=== PATIENT | female | born 1990 | race African-American/Black ===

== ENCOUNTER 2019-06-10 22:43 | Emergency (ER) | payer MEDICAID ==
--- NOTE | 2019-06-10 23:05 | ED Physician Chart ---
ED Chief Complaint/HPI - Patient Information Date Seen:: 06/10/19 Time Seen:: 22:50 Chief Complaint:: headache History of Present Illness:: Patient had onset 2-3 days ago of bifrontal headache which then became bitemporal. She saw flashing lights at the onset of the headache. Current headache severity is 4 on a scale of 1-10. Now she feels her neck is getting stiff. No recent fever. This is the patient's worse headache ever. Patient had milder headaches when she was 5 years ago. Allergies:: Allergies Allergy/AdvReac Type Severity Reaction Status Date / Time No Known Allergies Allergy Verified 06/10/19 22:52 Vitals:: Vital Signs - 8 hr 06/10/19 22:45 Temp 98.0 F HR 78 RR 18 BP 135/84 O2 Sat % 96 Historian:: Patient Review:: Nurse's Note Reviewed ED Review of Systems - Review of Systems General/Constitutional: No fever, No chills Skin: No skin lesions Head: Headache Eyes: No loss of vision ENT: No earache Neck: No neck pain, No swelling Cardio Vascular: No chest pain, No palpitations Pulmonary: No SOB GI: No nausea, No vomiting, No diarrhea G/U: No dysuria Musculoskeletal: No bone or joint pain Endocrine: No polyuria, No polydipsia Psychiatric: No prior psych history, No depression, No anxiety Hematopoietic: No bruising Allergic/Immuno: No urticaria Neurological: No syncope, No focal symptoms ED Past Medical History - Past Medical History Past Medical History: No significant medical hx Family History: Diabetes Melitus, HTN Social History: Non Smoker, No Alcohol Surgical History: None Psychiatricy History: None Family Medical History - Family Member Mother Hx Family Hypertension: Yes Hx Family Diabetes: Yes ED Physical Exam - Physical Examination General/Constitutional: Awake, Well-developed, well-nourished, Alert, No distress, GCS 15, Non-toxic appearing, Ambulatory Head: Atraumatic Eyes: Lids, conjuctiva normal, PERRL Other Eyes comments:: Optic disc are sharp Skin: Nl inspection, No rash, No skin lesions, No ecchymosis, Well hydrated, No lymphadenopathy ENMT: External ears, nose nl, TM canals nl, Nasal exam nl, Lips, teeth, gums nl , Oropharynx nl, Tonsils nl Neck: No nuchal rigidity Other Neck comments:: 90 forward flexion neck Respiratory: Nl effort/Exclusion, Clear to Auscultation, No Wheeze/Rhonchi/Rales Cardio Vascular: RRR, No murmur, gallop, rubs, NL S1 S2 GI: No tenderness/rebounding/guarding, No organomegaly : No CVA tenderness Extremities: Normal digits & nails Neuro/Psych: No focal deficits Other Neuro/Psych comments:: No facial asymmetry; strong equal hand grasp; finger to nose and heel to hinton test intact ED Assessment - Assessment General Assessment: At 2345 patient's headache had decreased from a 4 out of 10 to a 3 out of 10. At 2359 few minutes after patient was given Toradol 30 mg intramuscularly patient's headache was down to a 2 out of 10. Since the patient's headache did decrease after the Imitrex I will prescribe Imitrex 100 mg #9 to take one half to one daily as necessary for recurrence of headache. If the patient does have a migraine headache Imitrex would be expected to be less effective since the headache started 2-3 days ago. Instructed the patient to take the Imitrex at that onset of the headache. In favor of patient having a migraine is that she saw flashing lights at the onset of the headache. Against her headache being migraine is that the headache started bilaterally. ED Septic Shock - . Is Septic Shock (SBP<90, OR Lactate>4 mmol\L) present?: No - <6hrs of presentation: Vital Signs: Vital Signs - 8 hr 06/10/19 22:45 Temp 98.0 F HR 78 RR 18 BP 135/84 O2 Sat % 96 ED Reassessment (Disposition) - Reassessment Reassessment Condition:: Improved - Diagnosis Diagnosis:: Migraine headache - Aftercare/Follow up Instructions Aftercare/Follow-Up Instructions:: Refer to Discharge Instructions Medication Prescribed:: Imitrex 100 mg #9 to take one half to one daily as necessary for headache - Patient Disposition Discharge/Transfer:: Home Condition at Disposition:: Stable, Improved
== END 2019-06-11 00:12 | disposition home or self-care (01) ==
LOC: ER 22:43
DX: G43.909 Migraine, unspecified, not intractable, without status migrainosus (principal)
CPT/HCPCS: 99283; 96372; J1885; Z7502